=== PATIENT | male | born 1930 | race Caucasian/White ===

== ENCOUNTER 2018-05-19 08:38 | Inpatient (IN) | payer MEDICARE, OTHER ==
[~2018-05-19] VITALS: Ht 177.8 cm; Wt 77.7 kg
[2018-05-19] MEDS: SODIUM CHLORIDE 0.9% 1,000 ML IV SCH ×2 (09:13→17:13)
[2018-05-19 09:24] VITALS: BP 141/96
[2018-05-19] MEDS ORDERED: ASPI-496 PO (09:38)
[2018-05-19] MEDS ORDERED: AMIT150T PO (09:38)
[2018-05-19] MEDS ORDERED: LATA2.5D3 LEFTEYE (09:39)
[2018-05-19] MEDS ORDERED: OMEG1CAP6 PO (09:39)
[2018-05-19] MEDS ORDERED: BENA5TAB3 PO (09:39)
[2018-05-19] MEDS ORDERED: MIDAZOLAM 1 MG/ML, 5ML ONE (10:33)
[2018-05-19] MEDS ORDERED: CEFAZOLIN PMX 1GM/50ML 50 ML ONE (10:33)
[2018-05-19] MEDS ORDERED: FENTANYL PF 100 MCG/2ML ONE (10:33)
[2018-05-19] MEDS ORDERED: CEFAZOLIN 1,000 MG ONE (10:34)
[2018-05-19] MEDS ORDERED: BUPIVACAINE 0.25% ONE ×3 (10:34→11:26)
[2018-05-19] MEDS ORDERED: ACETAMINOPHEN 325 MG TABLET PO PRN (12:00)
[2018-05-19] MEDS ORDERED: HOLD MEDICATION MC PRN (12:00)
[2018-05-19 15:26] VITALS: BP 135/55
[2018-05-19 18:28] VITALS: BP 147/78
[2018-05-19] MEDS: CEFAZOLIN PMX 1GM/50ML 50 ML IVPB SCH (19:48)
[2018-05-19] MEDS: LATANOPROST OPHTH 0.005%, 2.5ML LEFTEYE SCH (21:00)
[2018-05-19] MEDS: SODIUM CHLORIDE FLUSH 10ML SYR IVF SCH (22:18)
[2018-05-19] MEDS: AMITRIPTYLINE 50 MG TABLET PO SCH (22:18)
[2018-05-20] MEDS: SODIUM CHLORIDE 0.9% 1,000 ML IV SCH ×3 (01:13→16:46)
[2018-05-20 02:20] VITALS: BP 141/96
[2018-05-20] MEDS: CEFAZOLIN PMX 1GM/50ML 50 ML IVPB SCH (03:10)
[2018-05-20 07:37] VITALS: BP 125/82
[2018-05-20] MEDS ORDERED: BENAZEPRIL 10 MG TABLET ONE (07:55)
[2018-05-20] MEDS: BENAZEPRIL 5 MG TABLET PO SCH (08:08)
[2018-05-20] MEDS: SODIUM CHLORIDE FLUSH 10ML SYR IVF SCH ×2 (08:08→20:36)
[2018-05-20] MEDS: ASPIRIN 81 MG TABLET EC PO SCH (08:08)
[2018-05-20] MEDS ORDERED: ACET325T14 PO (08:27)
[2018-05-20 14:30] VITALS: BP 128/76
[2018-05-20] MEDS: LATANOPROST OPHTH 0.005%, 2.5ML LEFTEYE SCH (20:36)
[2018-05-20] MEDS: AMITRIPTYLINE 50 MG TABLET PO SCH (20:36)
[2018-05-20 21:48] VITALS: BP 95/67
[2018-05-21 02:37] VITALS: BP 149/90
[2018-05-21 06:55] VITALS: BP 132/84
[2018-05-21] MEDS ORDERED: BENAZEPRIL 10 MG TABLET ONE (08:57)
[2018-05-21] MEDS: BENAZEPRIL 5 MG TABLET PO SCH (09:00)
[2018-05-21] MEDS: SODIUM CHLORIDE FLUSH 10ML SYR IVF SCH ×2 (09:00→20:57)
[2018-05-21] MEDS: ASPIRIN 81 MG TABLET EC PO SCH (10:13)
[2018-05-21 12:04] VITALS: BP 106/69
[2018-05-21 18:31] VITALS: BP 105/81
[2018-05-21] MEDS: AMITRIPTYLINE 50 MG TABLET PO SCH (20:56)
[2018-05-21] MEDS: LATANOPROST OPHTH 0.005%, 2.5ML LEFTEYE SCH (20:57)
[2018-05-22 01:05] VITALS: BP 134/90
[2018-05-22 06:52] VITALS: BP 150/88
[2018-05-22] MEDS ORDERED: BENAZEPRIL 10 MG TABLET ONE (07:53)
[2018-05-22] MEDS: SODIUM CHLORIDE FLUSH 10ML SYR IVF SCH ×2 (08:06→20:22)
[2018-05-22] MEDS: BENAZEPRIL 5 MG TABLET PO SCH (08:07)
[2018-05-22] MEDS: ASPIRIN 81 MG TABLET EC PO SCH (08:07)
[2018-05-22 12:13] VITALS: BP 120/82
[2018-05-22] MEDS ORDERED: POLYETHYLENE GLYCOL 17 GM PACKET PO PRN (17:00)
[2018-05-22] MEDS ORDERED: DOCUSATE 100 MG CAPSULE PO PRN (17:00)
[2018-05-22 19:20] VITALS: BP 105/68
[2018-05-22] MEDS: AMITRIPTYLINE 50 MG TABLET PO SCH (20:22)
[2018-05-22] MEDS: LATANOPROST OPHTH 0.005%, 2.5ML LEFTEYE SCH (20:22)
[2018-05-23 00:07] VITALS: BP 128/86
[2018-05-23 06:40] VITALS: BP 124/84
[2018-05-23] MEDS: ASPIRIN 81 MG TABLET EC PO SCH (08:16)
[2018-05-23] MEDS: BENAZEPRIL 5 MG TABLET PO SCH (08:16)
[2018-05-23] MEDS: SODIUM CHLORIDE FLUSH 10ML SYR IVF SCH (08:17)
[2018-05-23 13:44] VITALS: BP 114/77
== END 2018-05-23 15:15 | DRG 242 ==
LOC: CACL 08:38 → ORIP 11:51 → 5SO 15:19 → OBSVTOIN 05-20 14:55
PROVIDERS: ADMIT Internal Medicine Cardiovascular Disease; ATTEND Internal Medicine Cardiovascular Disease
PROC: 0JH606Z Insertion of Pacemaker, Dual Chamber into Chest Subcutaneous Tissue and Fascia, Open Approach (ICD-10-PCS; principal; 2018-05-19)
PROC: 02H63JZ Insertion of Pacemaker Lead into Right Atrium, Percutaneous Approach (ICD-10-PCS; 2018-05-19)
PROC: 02HK3JZ Insertion of Pacemaker Lead into Right Ventricle, Percutaneous Approach (ICD-10-PCS; 2018-05-19)
DX: I44.2 Atrioventricular block, complete (principal); G93.41 Metabolic encephalopathy; I44.1 Atrioventricular block, second degree; I10 Essential (primary) hypertension; Z91.81 History of falling; Z60.2 Problems related to living alone; R26.81 Unsteadiness on feet; Z87.891 Personal history of nicotine dependence
CPT/HCPCS: 33208; 70450; 71045; 99156; 99157; C1779; C1785; C1892; G0378; J0690; J2250; J3010; J3490